=== PATIENT | male | born 1990 | race Caucasian/White ===

== ENCOUNTER 2018-03-23 11:41 | Emergency (ER) | payer OTHER ==
[~2018-03-23] VITALS: Ht 182.9 cm; Wt 94.8 kg
[~2018-03-23 11:41] MED LIST: MULT-658 PO; OMEG1CAP23 PO
[2018-03-23 11:48] VITALS: BP 148/85
== END 2018-03-23 12:29 | disposition home or self-care (01) ==
LOC: ED 12:23
DX: Z00.00 Encounter for general adult medical examination without abnormal findings (principal); A92.5 Zika virus disease; Z87.891 Personal history of nicotine dependence
CPT/HCPCS: 36415; 86790; 99283

== ENCOUNTER 2019-04-16 21:41 | Emergency (ER) | payer OTHER ==
[~2019-04-16] VITALS: Ht 182.9 cm; Wt 78.0 kg
[2019-04-16 21:46] VITALS: BP 133/85
[2019-04-16] MEDS ORDERED: DIPH,PERTUSS(ACELL),TET VAC/PF 0.5 ML IM-VACC ONE ×2 (21:51→22:00)
[2019-04-16] MEDS ORDERED: NEOSPORIN OINT. PKT 1 PACKET ONE (22:36)
== END 2019-04-16 22:57 | disposition home or self-care (01) ==
LOC: ED 22:31
DX: S60.512A Abrasion of left hand, initial encounter (principal); S60.511A Abrasion of right hand, initial encounter; X58.XXXA Exposure to other specified factors, initial encounter; Y93.89 Activity, other specified; Y92.69 Other specified industrial and construction area as the place of occurrence of the external cause; Y99.8 Other external cause status
CPT/HCPCS: 90471; 90715